=== PATIENT | female | born 1950 | race African-American/Black ===

== ENCOUNTER 2017-08-10 05:44 | Day surgery (SDC) | payer MEDICARE, BC ==
[2017-08-08 11:53] LABS: CALC OSMOLALITY 278 mosm/kg (275-300); CALCIUM 9.4 mg/dL (8.5-10.1); CARBON DIOXIDE 23.6 mmol/L (21.0-32.0); CHLORIDE - SERUM 107 mmol/L (98-107); CREATININE - SERUM 0.8 mg/dL (0.6-1.3); GLUCOSE 88 mg/dL (74-106); HEMATOCRIT 41.1 % (36.0-48.0); HEMOGLOBIN 14.4 g/dL (12-16); LYMPHOCYTES 22.7 % (15-50); MCH 30.3 pg (26.0-34.0); MCV 86.3 fL (80.0-100.0); MEAN PLATELET VOLUME 9.6 fL (7.4-10.4); NEUTROPHILS 71.3 % (40-80); PLATELET COUNT 259 10x3/uL (130-400); POTASSIUM - SERUM 3.5 mmol/L (3.5-5.1); RBC 4.76 10x6/uL (4.00-5.40); RDW 14.7 % (11.5-14.5); SODIUM 141 mmol/L (136-145); UREA NITROGEN 9 mg/dL (7-18); WBC 9.7 10x3/uL (4.8-10.8); eGFR NON AFRICAN AMERICAN 76 mL/min (90-120)
[~2017-08-10] VITALS: Ht 157.5 cm; Wt 0.5 kg
--- NOTE | ~2017-08-10 | OP ---
PATIENT NAME: TRISH MELTON MEDICAL RECORD: [id number] :52 LOCATION:[facility] ADMISSION DATE: SURGEON: GABY BUTLER MD DATE OF OPERATION: 08/10/2017 PREOPERATIVE DIAGNOSES: 1. Leiomyomatous uterus. 2. Grossly normal-appearing ovaries and fallopian tubes. 3. No significant bowel adhesive disease noted. 4. Normal atrophic appearing endometrium. PROCEDURES: Diagnostic laparoscopy and hysteroscopy and endometrial biopsy. SURGEON: Gaby Butler MD ANESTHESIA: General endotracheal. INTRAVENOUS FLUIDS: Per anesthesia records. HYSTEROSCOPIC FLUID LOSS: Less than 100 mL of 0.9 normal saline. SPECIMENS: Included endometrial biopsy. ESTIMATED BLOOD LOSS: Minimal. DESCRIPTION OF PROCEDURE: The patient was taken to the operating room where general anesthesia was achieved without difficulty. The patient was then prepped and draped in normal sterile fashion in dorsal lithotomy position in the [facility]. Following prep and drape, the bladder was drained of less than 100 mL of clear yellow urine. A sponge stick was then placed in the vagina for uterine elevation. Attention was then turned to the umbilicus where a 5-mm incision was made in the infraumbilical region. The 5-mm bladeless trocar was then used to enter the intraperitoneal space under direct visualization of the laparoscope. Following intraperitoneal placement, the introducer was removed and the intraperitoneal placement was again confirmed by direct visualization. The patient was then insufflated and a second 5-mm incision was made approximately 5 cm above the pubic symphysis in the midline. A second 5-mm trocar was then introduced into the intraperitoneal space under direct visualization of the laparoscope. Survey of the abdomen and pelvis was performed. Following survey, the patient was desufflated and ports were removed and the skin incisions were repaired with 3-0 Monocryl in an interrupted fashion. Attention was then turned to the vagina where the sponge stick was removed and a Graves speculum was placed into the vagina. The cervix was grasped on its anterior lip with a single-tooth tenaculum. The patient was noted to have a very stenotic cervix. Dilation was performed; however, it became very difficult above 5 mm. This was enough to allow introduction of the hysteroscope into the uterine cavity. No significant pathology was noted. An endometrial Pipelle was then used to obtain an endometrial biopsy. Good hemostasis was noted from the cervical os and the tenaculum was removed. Good hemostasis noted from the tenaculum sites. The patient tolerated the procedure well, was transported to postanesthesia recovery stable without incident. 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 08/10/17 [id number] [place] [address]
[~2017-08-10 05:44] MED LIST: ANUSOL-HC25 MG RC; ATARAX 25 MG TA25 MG PO; BENICAR20 MG PO; CALCIUM 250+D T1 TAB PO; CYCLOBENZAPRINE10 MG PO; DIFLUCAN150 MG PO; ESGIC TABLET1 TAB PO; FISH OIL 1,0001 CA1 PO; HCTZ25 MG PO; KLONOPIN0.5 MG PO; KLOR-CON M2020 MEQ PO; L-METHYLFOLATE7.5 MG PO; LIDEX 0.05% OIN15 GM TOPICAL; LIDOCAINE50 GM TOPICAL; LIPITOR10 MG PO; MOBIC7.5 MG PO; MULTIPLE VITAMI1 TA1 PO; NEURONTIN 300300 MG PO; NIACIN100 MG PO; OMEPRAZOLE40 MG PO; PEPCID40 MG PO; PROCTOFOAM-HC F10 G1 RC; REQUIP0.5 MG PO; ROGAINE60 M1 TP; TRIGLIDE160 MG PO; ULTRAM50 MG PO; VALTREX500 MG PO; VITAMIN D31000 UNI2 PO; VOLTAREN75 MG PO
[2017-08-10] MEDS ORDERED: BENICAR20 MG PO (07:18)
[2017-08-10 07:34] VITALS: BP 147/78; Ht 157.5 cm; Wt 0.5 kg
== END 2017-08-10 12:30 | disposition home or self-care (01) ==
LOC: D.OPS 05:44 → D.PAN 07:30 → D.OPS 07:30 → D.PAN 08:05 → D.OPS 08:15
PROVIDERS: Anesthesiology; Obstetrics & Gynecology
DX: D25.9 Leiomyoma of uterus, unspecified (principal)

== ENCOUNTER → 2017-12-04 09:48 | Outpatient (CLI) | payer MEDICARE, BC ==
[2017-08-10 07:34] VITALS: BMI 33.7
== END | disposition home or self-care (01) ==
LOC: D.RAD 09:30
DX: K21.9 Gastro-esophageal reflux disease without esophagitis (principal)

== ENCOUNTER → 2017-12-07 11:03 | Outpatient (CLI) | payer MEDICARE, BC ==
[2017-08-10 07:34] VITALS: BMI 33.7
== END | disposition home or self-care (01) ==
LOC: D.CT 11:03
DX: R10.11 Right upper quadrant pain (principal)